=== PATIENT | male | born 1990 | race Caucasian/White ===

== ENCOUNTER 2017-06-12 04:39 | Emergency (ER) | payer OTHER ==
[~2017-06-12] VITALS: Ht 170.2 cm; Wt 89.0 kg
[~2017-06-12 04:39] MED LIST: PRED20 PO; Z.0.NO CURRENT MEDS
[2017-06-12 05:07] VITALS: BP 157/70; PULSE 105; RESP 20; TEMP 98.6; O2SAT 98
--- NOTE | 2017-06-12 05:19 | PD ---
HPI Chief Complaint: Psychiatric Symptoms Time Seen by Provider: 05:15 Travel History International Travel<30 days: No Contact w/Intl Traveler<30days: No Traveled to known affect area: No History of Present Illness HPI 26-year-old white male presents to the emergency department under Taylor act by PD. The patient allegedly had made suicidal statements. The patient just broke up with his long-term girlfriend today. He is also been under increasing stress at home. He states that his mother had a stroke a little over one year ago and is in a [place] [facility]. He is currently living in her home. He also lost his job last year and has not been able to find work. The patient denies any toxic ingestions. No homicidal ideation. No recent illness. He denies any drugs, alcohol or tobacco. PFSH Past Medical History Medical History: Denies Significant Hx Cancer: No Diabetes: No Diminished Hearing: No Psychiatric: No Seizures: No Thyroid Disease: No Ulcer: No Tetanus Vaccination: < 5 Years Past Surgical History Surgical History: No Previous Surgery Social History Alcohol Use: No Tobacco Use: No Substance Use: No Allergies-Medications (Allergen,Severity, Reaction): Coded Allergies: Ceclor (Verified Allergy, Severe, Hives, 06/12/17) Reported Meds & Prescriptions Reported Meds & Active Scripts Active Review of Systems Except as stated in HPI: all other systems reviewed are Neg Psychiatric: Positive: Depression, Suicidal Ideations, Mood Disorder, No: Anxiety, Disorder of Thought, Substance Abuse, Homicidal Ideation Physical Exam Narrative GENERAL: Well-nourished, well-developed patient. SKIN: Warm and dry. HEAD: Normocephalic and atraumatic. EYES: No scleral icterus. No injection or drainage. ENT: No nasal drainage noted. Mucous membranes pink. Airway patent. NECK: Supple, trachea midline. Moves head freely without obvious discomfort. CARDIOVASCULAR: Regular rate and rhythm without murmurs, gallops, or rubs. RESPIRATORY: Breath sounds equal bilaterally. No accessory muscle use. GASTROINTESTINAL: Abdomen soft, non-tender, nondistended. EXTREMITIES: No cyanosis or edema. BACK: Nontender without obvious deformity. No CVA tenderness. NEURO: Patient is alert and oriented. no sensorimotor deficits. Nonfocal. Normal speech. PSYCH: No delusions. No auditory or visual hallucinations. Data Data Last Documented VS Vital Signs Date Time Temp Pulse Resp B/P Pulse Ox O2 Delivery O2 Flow Rate FiO2 06/12/17 05:07 98.6 105 20 157/70 98 Orders Complete Blood Count With Diff (06/12/17 04:53) Comprehensive Metabolic Panel (06/12/17 04:53) Psych Screen (06/12/17 04:53) Drug Screen, Random Urine (06/12/17 04:53) Alcohol (Ethanol) (06/12/17 04:53) Salicylates (Aspirin) (06/12/17 04:53) Tylenol (Acetaminophen) (06/12/17 04:53) MDM Medical Decision Making Medical Screen Exam Complete: Yes Emergency Medical Condition: Yes Medical Record Reviewed: Yes Differential Diagnosis MDM: High Differential diagnoses: Schizophrenia, schizoaffective disorder, bipolar, anxiety, depression, adjustment reaction, mood disorder NOS, ODD, depressive disorder NOS, dementia, dementia with agitation, psychosis NOS, substance induced mood disorder, intermittent explosive disorder, Asperger syndrome, infection,electrolyte abnormality, malingering. Narrative Course Mental health screening discussed with the patient. Psychiatric screen ordered. The patient is been medically cleared. This is medical clearance for psychiatric admission, adjustment reaction with depressed mood Diagnosis Primary Impression: Medical clearance for psychiatric admission Additional Impression: Reaction, adjustment, with depressed mood, brief Condition: Stable Wang Jean Jun 12, 2017 05:19
[2017-06-12 06:14] LABS: BASOPHIL % 0.4 % (0.0-2.0); EOSINOPHIL # 0.1 TH/MM3 (0-0.4); EOSINOPHIL % 0.7 % (0.0-4.0); HEMATOCRIT 42.7 % (39.0-51.0); HEMO FLAGS DIFF FINAL; LYMPHOCYTE # 1.7 TH/MM3 (1.0-4.8); MEAN CELL VOLUME 86.3 FL (80.0-100.0); MEAN CORPUSCULAR HEMOGLOBIN 30.7 PG (27.0-34.0); MEAN CORPUSCULAR HGB CONC 35.5 % (32.0-36.0); MONO % 6.2 % (0.0-8.0); NEUT % 71.7 % (16.0-70.0); PLATELET COUNT 220 TH/MM3 (150-450); RED BLOOD COUNT 4.95 MIL/MM3 (4.50-5.90); RED CELL DISTRIBUTION WIDTH 12.5 % (11.6-17.2); WHITE BLOOD COUNT 8.3 TH/MM3 (4.0-11.0)
[2017-06-12 06:51] LABS: ACETAMINOPHEN LESS THAN 2.0 MCG/ML (10.0-30.0); ALT (GPT) 9 U/L (12-78); ANION GAP 10 MEQ/L (5-15); AST (GOT) 10 U/L (15-37); BICARBONATE 25.5 MEQ/L (21.0-32.0); BLOOD UREA NITROGEN 11 MG/DL (7-18); CHLORIDE 106 MEQ/L (98-107); GLOMERULAR FILTRATION RATE 87 ML/MIN (>89); POTASSIUM 3.3 MEQ/L (3.5-5.1); SODIUM (NA) 141 MEQ/L (136-145)
[2017-06-12 06:53] LABS: ALKALINE PHOSPHATASE 77 U/L (45-117); TOTAL BILIRUBIN ADULT 0.4 MG/DL (0.2-1.0)
[2017-06-12 07:03] LABS: ALCOHOL LESS THAN 3 MG/DL (0-5)
[2017-06-12] MEDS ORDERED: POTASSIUM CHLORIDE 20 MEQ CONTROLLED RELEASE TAB PO ONE (07:45)
[2017-06-12 08:37] VITALS: BP 137/85; PULSE 74; RESP 16; O2SAT 98
[2017-06-12 12:00] VITALS: BP 141/69; PULSE 81; RESP 18; TEMP 98.4; O2SAT 100
[2017-06-12 18:50] VITALS: BP 123/70; PULSE 81; RESP 18
[2017-06-13 02:10] VITALS: BP 134/72; PULSE 79; RESP 18; TEMP 97.6; O2SAT 99
[2017-06-13 06:27] VITALS: BP 128/62; PULSE 88; RESP 18; TEMP 99.1; O2SAT 100
--- NOTE | 2017-06-13 07:56 | PD ---
History of Present Illness Chief Complaint: Psychiatric Symptoms Time Seen by Provider: 07:30 Travel History International Travel<30 Days: No Contact w/Intl Traveler<30days: No Known affected area: No Legal Status Legal Status: Taylor Act Taylor Act Signed By: Dianne Taylor Act Comment: Signed by Dianne SHRESTHA Officer Rose Marie Bailey # [id number]. History of Present Illness: History of Present Illness 26-year-old white male with prior history of adjustment disorder with depression who presents to the emergency department under Taylor act by PD. The BA alleges that he admitted to feeling depressed over a breakup and stated that he was going to end it. He made statements about getting rid of his animals and vehicle. Saying he didn't want them because he would be gone. He also stated he was depressed over loosing his job and his mother's health issues. he did not make any attempt at harming himself. The patient was monitored in [facility] and he presented no behavioral concerns and no suicidality. Seen with CAMILLA Moon. EMR reviewed. Current toxicology is negative for substances. He is alert and oriented. Calm, engaging and cooperative. There is no carlos manuel or hypomania. Speech is clear and logical. No psychosis. He states that he is upset over recent breakup " wouldn't anybody after a nine year relationship. he admits to having discussed giving up his pets because he will not be able to to take them with him if he moves. In terms of the car he states that the car is co- owned with his ex girlfriend and he does want to get rid of it so that they can end the financial commitment they share and " go on with my life". He denies any suicidal ideation, intent or plan. He has no previous attempts. He states that he will not harm himself or kill himself because " I would not do that to my family" as well as " I want to do something with my life". he has made plans to move in with a cousin . Telephone call to cousin Charly at [phone]. He has no concerns if patient is discharged. He confirms that patient will be moving in with him . He will pick the patient up. [facility] Past Medical History Medical History: Denies Significant Hx Cancer: No Diabetes: No Diminished Hearing: No Psychiatric: No Seizures: No Thyroid Disease: No Ulcer: No Tetanus Vaccination: < 5 Years Influenza Vaccination: No Past Surgical History Surgical History: No Previous Surgery Psychiatric History Psychiatric History Hx Psychiatric Treatment: Hx inpatient and outpatient treatment with [facility] in 2004. [facility] in 2004 due to writings in his personal journal about ending his life. This was in context of being bullied at school. Has not had tretament since that time History of Inpatient Treatment: Yes Guns or firearms in home: No Social History Single male who has worked in [employer]. he has been unemployed since April 2016. Hx Alcohol Use: No Hx Tobacco Use: No Hx Substance Use: No (Patient denies any substance use/abuse) Hx of Substance Use Treatment: No Family Psychiatric History Negative Allergies-Medications (Allergen,Severity, Reaction): Coded Allergies: Ceclor (Verified Allergy, Severe, Hives, 06/12/17) Reported Meds & Prescriptions Reported Meds & Active Scripts Active No Active Prescriptions or Reported Medications Review of Systems Except as stated in HPI: all other systems reviewed are Neg Exam Alert: Yes [place]: Person (ox4) Mood: Calm Affect: Appropriate Speech: Clear, Logical Eye Contact: Normal Memory Intact: Comment (Not impaired) Delusions: No Suicidal: Ideation (deneis any) Homicidal: Ideation (deneis) Insight/Judgement Fair. No impaired. MDM Medical Decision Making Medical Record Reviewed: Yes Assessment/Plan 26-year-old white male with prior history of adjustment disorder with depression who presents to the emergency department under Taylor act by PD. The BA alleges that he admitted to feeling depressed over a breakup and stated that he was going to end it. He made statements about getting rid of his animals and vehicle. Saying he didn't want them because he would be gone. This in context of a breakup with his girlfriend. The patient did not make any attempt at harming himself and has exhibited no suicidality while under observation. The patient at this time does not meet BA criteria. He has adequate protective factors in place and collateral information obtained present no concern for the patient's safety. The patient has also made plans to move in with family if he were discharged. The patient agrees to return to ED if anything changes and he contracts for safety. Lift BA. Orders Diet Regular Basic (06/12/17 Dinner) Diet Regular Basic (06/13/17 Breakfast) Results Vital Signs Date Time Temp Pulse Resp B/P Pulse Ox O2 Delivery O2 Flow Rate FiO2 06/13/17 06:27 99.1 88 18 128/62 100 06/13/17 02:10 97.6 79 18 134/72 99 Room Air 06/12/17 18:50 81 18 123/70 Room Air 06/12/17 12:00 98.4 81 18 141/69 100 Room Air 06/12/17 08:37 74 16 137/85 98 Room Air Diagnosis Primary Impression: Reaction, adjustment, with depressed mood, brief Psychiatrically Cleared: Yes Departure Forms: Tests/Procedures Patient Instructions: General Instructions, Mood Disorders (ED), Medical Clearance for Psychiatric Care (ED) Additional Instructions: DISCHARGE HOME DIAGNOSIS ADJUSTMENT REACTION FOLLOW-UP WITH PCP NEEDED RETURN TO ED FOR WORSENING PROBLEMS Med/ Other Pt Specific Info: No Meds Exist/No RX given Prescriptions No Active Prescriptions or Reported Meds Disposition: 01 DISCHARGE HOME Condition: Stable Andie Hathaway ZHAO Jun 13, 2017 07:55
[2017-06-13 07:58] VITALS: BP 128/62; TEMP 98.7
== END 2017-06-13 08:00 | disposition home or self-care (01) ==
LOC: NEPD 04:39 → NEPJ 06-13 08:00
DX: F43.21 Adjustment disorder with depressed mood (principal)
CPT/HCPCS: 80053; 80307; 85025; 99284